=== PATIENT | female | born 1995 | race Caucasian/White ===

== ENCOUNTER 2018-03-26 18:22 | Emergency (ER) | payer OTHER ==
[2018-03-26] MEDS ORDERED: Ondansetron INJ* 2 MG/ML VIAL IV ONE (21:40)
[2018-03-26] MEDS ORDERED: NS 0.9% 1000 ML* 1,000 ML IV ONE ×2 (21:40→21:41)
--- NOTE | 2018-03-26 21:41 | ED ---
GI/ HPI - HPI Summary HPI Summary: Pt. is a 22 y.o female who presents to the ER for abd. pain, vomiting and diarrhea x 4 days. Pt. notes she was in [place] last week and came back Friday. Pt. notes stool is yellow and greasy. She states there was a small amount of blood in stool on Friday but none since. Pt. notes no one in her family has similar symptoms. She otherwise denies fever, chills, cough, rash, urinary sxs, vaginal discharge or bleeding. No past medical hx. Sxs are moderate in severity. No current modifying factors. - History of Current Complaint Chief Complaint: EDAbdPain Time Seen by Provider: 03/26/18 21:08 Stated Complaint: VOMITING Hx Obtained From: Patient Pain Intensity: 5 - Allergy/Home Medications Allergies/Adverse Reactions: Allergies Allergy/AdvReac Type Severity Reaction Status Date / Time amoxicillin [From Augmentin] Allergy Hives Verified 12/17/17 09:39 clavulanic acid Allergy Hives Verified 12/17/17 09:39 [From Augmentin] levofloxacin Allergy Hives Verified 12/17/17 09:39 PMH/Surg Hx/FS Hx/Imm Hx Endocrine/Hematology History: Denies: Hx Diabetes Cardiovascular History: Denies: Hx Hypertension, Hx Pacemaker/ICD Respiratory History: Denies: Hx Asthma History: Denies: Hx Renal Disease Sensory History: Denies: Hx Hearing Aid Psychiatric History: Denies: Hx Panic Disorder Infectious Disease History: No Infectious Disease History: Denies: Traveled Outside the [place] in Last 30 Days Review of Systems Constitutional: Negative ENT: Negative Cardiovascular: Negative Respiratory: Negative Positive: Abdominal Pain, Vomiting, Diarrhea, Nausea Genitourinary: Negative Musculoskeletal: Negative Skin: Negative Neurological: Negative All Other Systems Reviewed And Are Negative: Yes Physical Exam Triage Information Reviewed: Yes Vital Signs On Initial Exam: Initial Vitals Temp Pulse Resp BP Pulse Ox 97.2 F 68 16 121/74 97 03/26/18 18:25 03/26/18 18:25 03/26/18 18:25 03/26/18 18:25 03/26/18 18:25 Vital Signs Reviewed: Yes Appearance: Positive: Well-Appearing - Pt. sitting on bed in NAD. S.O present. Skin: Positive: Warm, Dry Head/Face: Positive: Normal Head/Face Inspection Eyes: Positive: Normal, EOMI Neck: Positive: Supple Respiratory/Lung Sounds: Positive: Clear to Auscultation, Breath Sounds Present Cardiovascular: Positive: Normal, RRR Abdomen Description: Positive: Other: - Abd. is soft with mild tenderness to LUQ and LLQ. no rebound tenderness or guarding. No pain at mcburney's point. Neurological: Positive: Normal, CN Intact II-III Psychiatric: Positive: Affect/Mood Appropriate Diagnostics - Vital Signs Vital Signs Temp Pulse Resp BP Pulse Ox 03/26/18 20:03 98.0 F 52 16 103/57 100 03/26/18 18:25 97.2 F 68 16 121/74 97 - Laboratory Result Diagrams: 03/26/18 22:16 03/26/18 22:16 Lab Statement: Any lab studies that have been ordered have been reviewed, and results considered in the medical decision making process. GIGU Course/Dx - Course Course Of Treatment: Pt. presenting for N/V/D after a trip to [place]. She notes abd. pain but she has a soft abd. without significant tenderness. She has no pain over mcburney's point. She is afebrile with stable VS. Pt. overall is very well appearing. Will give iv fluids, zofran and check basic labs. Will send stool cultures if pt. can provide. Labs are unremarkable. Pt. tolerating PO fluids. She was unable to give stool sample. Suspect viral gastroenteritis. Rx for zofran sent to pharm. Advised pt to f.u with [facility] clinic in 1-2 days if sxs persist. Will return to ER if sxs change or worsen. Pt. understands and agrees with plan. - Diagnoses Differential Diagnoses - Female: Appendicitis, Dehydration, Diarrhea, , Vomiting Provider Diagnoses: Gastroenteritis Discharge - Sign-Out/Discharge Documenting (check all that apply): Patient Departure - Discharge Plan Condition: Improved Disposition: HOME Prescriptions: Ondansetron TAB* [Zofran 4 MG Tab*] 4 mg PO Q6H PRN #12 tab PRN Reason: Nausea Patient Education Materials: Gastroenteritis (ED) Referrals: [facility] @ [Outside] Additional Instructions: Schedule a follow up appointment with the [facility] Zofran as directed for nausea/vomiting Increase fluids Return to ER for increased pain, fever, uncontrollable vomiting or if concerned - Billing Disposition and Condition Condition: IMPROVED Disposition: Home
[2018-03-26 22:30] LABS: ABS Basophils 0 10^3/ul (0-0.2); ABS Eosinophils 0.1 10^3/ul (0-0.6); ABS Lymphocytes 2.2 10^3/ul (1.0-4.8); ABS Monocytes 0.5 10^3/ul (0-0.8); ABS Neutrophils 3.5 10^3/ul (1.5-7.7); ABS Nucleated RBC 0 10^3/ul; Eosinophil % 1.3 %; Hematocrit 41 % (35-47); Lymphocyte % 35.8 %; Mean Corpuscular HGB Conc 34 g/dl (31-36); Mean Corpuscular Hemoglobin 30 pg (27-31); Mean Corpuscular Volume 88 fL (80-97); Nucleated Red Blood Cells % 0.1; Platelet Count 245 10^3/ul (150-450); Red Blood Count 4.61 10^6/ul (4.00-5.40); Red Cell Distribution Width 13 % (10.5-15); White Blood Count 6.3 10^3/ul (3.5-10.8)
[2018-03-26 22:45] LABS: ALT 20 U/L (7-52); AST 18 U/L (13-39); Albumin 4.3 g/dL (3.2-5.2); Albumin/Globulin Ratio 1.2 (1-3); Alkaline Phosphatase 30 U/L (34-104); Anion Gap 5 mmol/L (2-11); BUN/Creatinine Ratio 12.6 (8-20); Blood Urea Nitrogen 12 mg/dL (6-24); C Reactive Protein < 1.00 mg/L (<8.01); CO2 Carbon Dioxide 28 mmol/L (22-32); Calcium 9.5 mg/dL (8.6-10.3); Chloride 105 mmol/L (101-111); Globulin 3.5 g/dL (2-4); Glucose 86 mg/dL (70-100); Potassium 3.7 mmol/L (3.5-5.0); Sodium 138 mmol/L (135-145); Total Protein 7.8 g/dL (6.4-8.9)
[2018-03-26 22:51] LABS: HCG Pregnancy < 0.60 mIU/mL
[2018-03-26] MEDS ORDERED: Ondansetron TAB* 4 MG PO ONE (23:43)
[2018-03-27 00:13] VITALS: BP 105/74
== END 2018-03-27 00:16 | disposition home or self-care (01) ==
LOC: ED 18:22
DX: K52.9 Noninfective gastroenteritis and colitis, unspecified (principal); Z88.1 Allergy status to other antibiotic agents; Z88.0 Allergy status to penicillin
CPT/HCPCS: 36415; 80053; 83690; 84702; 85025; 86140; 96374; 99283; A9270-GY; J2405